=== PATIENT | male | born 1955 | race Caucasian/White ===

== ENCOUNTER 2016-08-15 01:26 | Emergency (ER) | payer OTHER ==
[2016-08-15] MEDS ORDERED: NS 1,000 ML IV ONE (02:04)
[2016-08-15] MEDS ORDERED: ONDANSETRON 4 MG/2 ML VIAL IVP ONE (02:05)
[2016-08-15 03:12] LABS: % IMMATURE GRANULYOCYTES 0.2 % (0.0-1.1); ABSOLUTE IMMATURE GRANULOCYTES 0.01 10^3/uL (0.00-0.10); ADD DIFF? NO; ADD MORPH? NO; ADD SCAN? NO; ATYPICAL LYMPHOCYTE FLAG 0 (0-99); FRAGMENT RBC FLAG 0 (0-99); HEMATOCRIT 45.8 % (40.0-51.0); HEMOGLOBIN 15.9 g/dL (13.7-17.5); LEFT SHIFT FLG 0 (0-99); LIPEMIA HEMOLYSIS FLAG 90 (0-99); MEAN CELL HEMOGLOBIN 32.4 pg (27.9-34.1); MEAN CELL HEMOGLOBIN CONCENTR. 34.7 g/dL (32.4-36.7); MEAN CELL VOLUME 93.3 fL (81.5-99.8); MEAN PLATELET VOLUME 10.7 fL (8.7-11.7); PLATELET CLUMPS FLAG 0 (0-99); PLATELET COUNT 208 10^3/uL (150-400); RED BLOOD CELL COUNT 4.91 10^6/uL (4.40-6.38); RED CELL DISTRIBUTION WIDTH 12.8 % (11.5-15.2)
[2016-08-15 03:19] LABS: ANION GAP 13 mEq/L (8-16); CARBON DIOXIDE 21 mEq/l (22-31); CHLORIDE 106 mEq/L (97-110); CREATININE 1.3 mg/dL (0.7-1.3); GLOMERULAR FILTRATION RATE 56; GLUCOSE 100 mg/dL (70-100); POTASSIUM 3.8 mEq/L (3.5-5.2); SODIUM 140 mEq/L (134-144)
--- NOTE | 2016-08-15 03:29 | CPEKG ---
Heart Rate: 83 RR Interval: 723 P-R Interval: 160 QRSD Interval: 102 QT Interval: 388 QTC Interval: 456 P [place]: 60 QRS [place]: 69 T Wave [place]: 16 EKG Severity - ABNORMAL ECG - EKG Impression: SINUS RHYTHM EKG Impression: VENTRICULAR TRIGEMINY Electronically Signed By: Emeli Parkinson 15-Aug-2016 09:13:40
[2016-08-15 03:44] LABS: TROPONIN I < 0.012 ng/mL (0-0.034)
--- NOTE | 2016-08-15 04:24 | EDPHY ---
H & P Stated Complaint: N,V,D FAMILY SICK WITH NOROVIRUS Time Seen by Provider: 08/15/16 01:38 HPI/ROS: HPI The patient presents with coughing which awoke him from sleep tonight. He was lying in bed, mostly flat when he woke up and had a coughing fit productive of clear yellowish sputum. Over the last several days he has been sick with presumed norovirus is he is caring for his son who was recently neuro virus positive. He has had nausea, vomiting, diarrhea but actually was feeling a bit better today until he awoke this morning. He does not have any fever, coughing currently, shortness of breath. He does report diffuse pain throughout his chest. He questions if this is related to his underlying GERD. He did eat a hamburger and Indonesian fries for dinner.. REVIEW OF SYSTEMS Constitutional: No fever, no chills. Eyes: No discharge. ENT: No sore throat. Cardiovascular: No chest pain, no palpitations. Respiratory: No cough, no shortness of breath. Gastrointestinal: No abdominal pain, no vomiting. Genitourinary: No hematuria. Musculoskeletal: No back pain. Skin: No rashes. Neurological: No headache. PMHx: Hypertriglyceridemia, no prior abdominal operations Soc Hx: Lives at home, has a college age son PHYSICAL General Appearance: Alert, no distress Eyes: Pupils equal and round no pallor or injection ENT, Mouth: Mucous membranes moist Respiratory: There are no retractions, lungs are clear to auscultation Cardiovascular: Regular rate and rhythm Gastrointestinal: Abdomen is soft and non-tender, no masses, bowel sounds normal Neurological: A&O, moves all extremities Skin: Warm and dry, no rashes Musculoskeletal: Neck is supple non tender Extremities: symmetrical, full range of motion Psychiatric: Patient is oriented X 3, there is no agitation Source: Patient Exam Limitations: No limitations - Personal History Current Tetanus/Diphtheria Vaccine: Yes Current Tetanus Diphtheria and Acellular Pertussis (TDAP): Yes - Medical/Surgical History Hx Asthma: No Hx Chronic Respiratory Disease: No Hx Diabetes: No Hx Cardiac Disease: No Hx Renal Disease: No Hx Cirrhosis: No Hx Alcoholism: No Hx HIV/AIDS: No Hx Splenectomy or Spleen Trauma: No Other PMH: GERD, HIGH CHOLESTEROL. - Social History Smoking Status: Never smoked Constitutional: Initial Vital Signs Temperature (C) 36.8 C 08/15/16 01:29 Heart Rate 90 08/15/16 01:29 Respiratory Rate 18 08/15/16 01:29 Blood Pressure 119/84 H 08/15/16 01:29 O2 Sat (%) 99 08/15/16 01:29 O2 Delivery Mode Room Air Allergies/Adverse Reactions: No Known Allergies Allergy (Unverified 08/15/16 01:31) Home Medications: Medication Instructions Recorded Esomeprazole Magnesium [Nexium] 08/15/16 Medical Decision Making Differential Diagnosis: This is a 60-year-old relatively healthy man who presents from home with a cough which awoke him from sleep which was associated with some gagging which is now mostly resolved. This is in the setting of recent diarrheal illness with vomiting, son has tested positive for norovirus and it is presumed that the patient has this as well. Cough could be due to vomiting from gastroenteritis, GERD while sleeping have induced a cough, the patient could also have a pneumonia. ACS is a consideration given the chest pain, however I feel GERD is more likely. In the emergency room, the patient received IV fluids with some improvement in his symptoms. Chest x-ray and EKG were unremarkable. Troponin was also negative. CBC and BMP P were normal. I feel he is likely having the cough related to dry heaving or his GERD. I have encouraged him to maintain a bland diet. He has had no active vomiting here. He will be discharged from the emergency room. - Data Points Laboratory Results: Laboratory Results 08/15/16 02:30 08/15/16 02:30 08/15/16 08/15/16 02:30 02:30 WBC 4.92 10^3/uL 10^3/uL (3.80-9.50) RBC 4.91 10^6/uL 10^6/uL (4.40-6.38) Hgb 15.9 g/dL g/dL (13.7-17.5) Hct 45.8 % % (40.0-51.0) MCV 93.3 fL fL (81.5-99.8) MCH 32.4 pg pg (27.9-34.1) MCHC 34.7 g/dL g/dL (32.4-36.7) RDW 12.8 % % (11.5-15.2) Plt Count 208 10^3/uL 10^3/uL (150-400) MPV 10.7 fL fL (8.7-11.7) Neut % (Auto) 74.2 % % (39.3-74.2) Lymph % (Auto) 14.2 % L % (15.0-45.0) [place] % (Auto) 9.8 % % (4.5-13.0) Eos % (Auto) 1.2 % % (0.6-7.6) Baso % (Auto) 0.4 % % (0.3-1.7) Nucleat RBC Rel Count 0.0 % % (0.0-0.2) Absolute Neuts (auto) 3.65 10^3/uL 10^3/uL (1.70-6.50) Absolute Lymphs (auto) 0.70 10^3/uL L 10^3/uL (1.00-3.00) Absolute Monos (auto) 0.48 10^3/uL 10^3/uL (0.30-0.80) Absolute Eos (auto) 0.06 10^3/uL 10^3/uL (0.03-0.40) Absolute Basos (auto) 0.02 10^3/uL 10^3/uL (0.02-0.10) Absolute Nucleated RBC 0.00 10^3/uL 10^3/uL (0-0.01) Immature Gran % 0.2 % % (0.0-1.1) Immature Gran # 0.01 10^3/uL 10^3/uL (0.00-0.10) Sodium 140 mEq/L mEq/L (134-144) Potassium 3.8 mEq/L mEq/L (3.5-5.2) Chloride 106 mEq/L mEq/L (97-110) Carbon Dioxide 21 mEq/l L mEq/l (22-31) Anion Gap 13 mEq/L mEq/L (8-16) BUN 27 mg/dL H mg/dL (7-23) Creatinine 1.3 mg/dL mg/dL (0.7-1.3) Estimated GFR 56 Glucose 100 mg/dL mg/dL (70-100) Calcium 10.0 mg/dL mg/dL (8.5-10.4) Troponin I < 0.012 ng/mL ng/mL (0-0.034) Medications Given: Discontinued Medications Sodium Chloride (Ns) 1,000 mls @ 0 mls/hr IV ONCE ONE PRN Reason: Wide Open Stop: 08/15/16 02:05 Last Admin: 08/15/16 02:41 Dose: 1,000 mls Ondansetron HCl (Zofran) 4 mg IVP EDNOW ONE Stop: 08/15/16 02:06 Last Admin: 08/15/16 02:42 Dose: 4 mg Departure - Departure Disposition: Home, Routine, Self-Care Clinical Impression: Cough, Nausea vomiting and diarrhea Condition: Good Instructions: Dehydration (ED), Gastroenteritis (ED) Additional Instructions: Please return to the emergency room if you are worse in any way. Otherwise please follow-up with your doctor in 1 day. Referrals: Gilbert Hines MD [Primary Care Provider] - As per Instructions
[2016-08-15 04:26] VITALS: BP 105/69; PULSE 84; RESP 16; TEMP 98.4; O2SAT 97
== END 2016-08-15 04:30 | disposition home or self-care (01) ==
DX: R05 Cough (principal); R11.2 Nausea with vomiting, unspecified; R19.7 Diarrhea, unspecified
CPT/HCPCS: 96374

== ENCOUNTER 2017-06-08 09:11 | Day surgery (SDC) | payer OTHER ==
--- NOTE | 2017-06-08 08:31 | PDHPUP ---
History & Physical Update H&P update statement: This history and physical update is based on an assessment of the patient which was completed after admission or registration (within 24 hours), but prior to the surgery/procedure. update
[2017-06-08] MEDS ORDERED: BUPIVACAINE 0.5% 30 ML SDV ONE (09:18)
--- NOTE | 2017-06-08 09:25 | PDANEPAE ---
ANE Past Medical History - Cardiovascular History Hx Hypertension: No Hx Arrhythmias: No Hx Chest Pain: No Hx Coronary Artery / Peripheral Vascular Disease: No Hx CHF / Valvular Disease: No Hx Palpitations: No - Pulmonary History Hx COPD: No Hx Asthma/Reactive Airway Disease: No Hx Recent Upper Respiratory Infection: No Hx Oxygen in Use at Home: No Hx Sleep Apnea: No Sleep Apnea Screening Result - Last Documented: Positive - Neurologic History Hx Cerebrovascular Accident: No Hx Seizures: No Hx Dementia: No - Endocrine History Hx Diabetes: No - Renal History Hx Renal Disorders: No - Liver History Hx Hepatic Disorders: No - Neurological & Psychiatric Hx Hx Neurological and Psychiatric Disorders: No - Cancer History Hx Cancer: No - Congenital Disorder History Hx Congenital Disorders: No - GI History Hx Gastrointestinal Disorders: Yes Gastrointestinal History Comment: Gerd - Other Health History Other Health History: none - Chronic Pain History Chronic Pain: No - Surgical History Prior Surgeries: endoscopy 5yrs ago,colonoscopy 2yrs ago ANE Review of Systems Review of Systems: - Exercise capacity METS (RN): 4 METS ANE Patient History - Allergies Allergies/Adverse Reactions: No Known Allergies Allergy (Verified 06/05/17 14:37) - Home Medications Home Medications: Esomeprazole Magnesium [Nexium] 08/15/16 [Last Taken Unknown] Fenofibrate 06/05/17 [Last Taken Unknown] - Smoking Hx Smoking Status: Never smoked - Family Anes Hx Family Hx Anesthesia Complications: none ANE Labs/Vital Signs - Vital Signs Height: 177.8 cm Weight: 95.254 kg ANE Physical Exam - Airway Mallampati Score: Class 2 - ASA Status ASA Status: II ANE Anesthesia Plan Anesthesia Plan: general endotracheal anesthesia
[2017-06-08] MEDS ORDERED: fentaNYL 100 MCG/2 ML INJ ONE ×2 (09:37→11:16)
[2017-06-08] MEDS ORDERED: PROPOFOL 200 MG/20 ML VIAL ONE (09:37)
[2017-06-08] MEDS ORDERED: MIDAZOLAM 2 MG/2 ML VIAL ONE (09:37)
[2017-06-08] MEDS ORDERED: METOCLOPRAMIDE 10 MG/2 ML VIAL ONE (09:40)
[2017-06-08] MEDS ORDERED: ONDANSETRON 4 MG/2 ML VIAL ONE (09:40)
[2017-06-08] MEDS ORDERED: ceFAZolin 2 GM/DEXTROSE 100 ML IV ONE (09:47)
[2017-06-08] MEDS ORDERED: LR 1,000 ML IV ONE (09:47)
[2017-06-08 09:56] VITALS: PULSE 71
[2017-06-08] MEDS ORDERED: ceFAZolin 2 GM/SWFI 2 GM/20 ML SYR IVP ONE (10:00)
[2017-06-08] MEDS ORDERED: NALOXONE HCL 0.4 MG/ML INJ IVP PRN (10:53)
[2017-06-08] MEDS ORDERED: LR 500 ML IV PRN (10:53)
[2017-06-08] MEDS ORDERED: PROMETHAZINE HCL 25 MG/ML INJ IVP PRN (10:53)
[2017-06-08] MEDS ORDERED: MEPERIDINE 25 MG/ML SYR IVP PRN (10:53)
--- NOTE | 2017-06-08 10:53 | POSTOPPROG ---
Post Op Note Date of Operation: 06/08/17 Surgeon: Chente Dempsey Steamfitter Supervisor: sb Guerrero Anesthesiologist: Dr Tate Anesthesia: GET(General Endotracheal) Pre-op Diagnosis: umbilical hernia Post-op Diagnosis: same Indication: pain Procedure: open repair with mesh Findings: hernia Inf/Abcess present in the surg proc area at time of surgery?: No Depth: Deep Incisional (Fascial) EBL: Minimal
--- NOTE | 2017-06-08 10:54 | POSTANESTH ---
Post Anesthetic Evaluation Cardiovascular Status: Normal, Stable Respiratory Status: Normal, Stable Level of Consciousness/Mental Status: Can Participate in Eval Pain Control: Adequate, Prn Tx Ordered Nausea/Vomiting Control: Adequate, Prn Tx Ordered Complications Possibly Related to Anesthesia: None Noted
[2017-06-08] MEDS: fentaNYL 100 MCG/2 ML INJ IVP PRN ×2 (11:18→11:51)
[2017-06-08 11:23] VITALS: TEMP 97
[2017-06-08 11:30] VITALS: RESP 11
[2017-06-08 12:06] VITALS: BP 112/79; O2SAT 90
--- NOTE | 2017-06-10 04:51 | GOP ---
[f rep st] OPERATIVE REPORT DATE OF OPERATION: 06/08/2017 SURGEON: Chente Dempsey MD PLASTERER TENDER: EILEEN Arce. ANESTHESIOLOGIST: Dr. Tate. PREOPERATIVE DIAGNOSIS: Symptomatic umbilical hernia. POSTOPERATIVE DIAGNOSIS: Symptomatic umbilical hernia. PROCEDURE PERFORMED: Open umbilical hernia repair with mesh. FINDINGS: Patient was found to have a 3 cm umbilical fascial defect with properitoneal fat in the wo und. ESTIMATED BLOOD LOSS: Negligible. DESCRIPTION OF PROCEDURE: Patient was taken to the operating room where he received satisfactory gen eral endotracheal anesthesia by Dr. Tate. He was placed in supine position, prepped and draped in usual sterile fashion. Infraumbilical incision was made and carried down through the subcutaneous ti ssue. The hernia sac was dissected free from surrounding subcutaneous tissue and off the back of the umbilical skin. The fascial edges were opened around the hernia sac and its contents were reduced c reating a subfascial preperitoneal pocket. A small piece of Bard mesh was placed in this pocket and secured around the periphery of the defect with interrupted 0 Ethibond mattress sutures. Defect itse lf was then closed with interrupted 0 Ethibond [id number] sutures. Wound was infiltrated with 0 .5% Marcaine. Subcu was closed with 3-0 Vicryl and the skin with a 4-0 Monocryl subcuticular stitch. There were no complications. DISPOSITION: He was taken to the recovery room in good condition. /[id number]/MODL
== END 2017-06-08 12:15 | disposition home or self-care (01) ==
LOC: FSGY 09:11
PROVIDERS: ATTEND Surgery
PROC: 0WUF0JZ Supplement Abdominal Wall with Synthetic Substitute, Open Approach (ICD-10-PCS; principal; 2017-06-08 11:00)
DX: K42.9 Umbilical hernia without obstruction or gangrene (principal); E78.5 Hyperlipidemia, unspecified; K21.9 Gastro-esophageal reflux disease without esophagitis; Z80.42 Family history of malignant neoplasm of prostate
CPT/HCPCS: C1781; J0690; J2250; J2405; J2704; J2765; J3010

== ENCOUNTER → 2018-07-29 | Outpatient (CLI) | payer OTHER | LOC: CLAB 14:57 → EDSTATUS 15:00 → CIMAGING 15:00 | PROVIDERS: ATTEND Internal Medicine | DX: R07.81 Pleurodynia (principal); M54.9 Dorsalgia, unspecified | CPT/HCPCS: 71101-PO; 72080-PO ==

== ENCOUNTER → 2018-07-30 | Outpatient (CLI) | payer OTHER | LOC: FIMAGING 16:00 | PROVIDERS: ATTEND Internal Medicine | DX: M51.34 Other intervertebral disc degeneration, thoracic region (principal); M51.36 Other intervertebral disc degeneration, lumbar region; M51.37 Other intervertebral disc degeneration, lumbosacral region; M46.96 Unspecified inflammatory spondylopathy, lumbar region; M46.94 Unspecified inflammatory spondylopathy, thoracic region; M46.97 Unspecified inflammatory spondylopathy, lumbosacral region; M48.061 Spinal stenosis, lumbar region without neurogenic claudication; M48.04 Spinal stenosis, thoracic region ==